=== PATIENT | female | born 1990 | race Caucasian/White ===

== ENCOUNTER → 2017-11-15 10:32 | Outpatient (CLI) | payer OTHER, SELFPAY | PROVIDERS: Visit Provider Specialist | DX: Z53.8 Procedure and treatment not carried out for other reasons (principal) ==

== ENCOUNTER → 2017-11-15 10:39 | Outpatient (CLI) | payer OTHER, SELFPAY ==
--- NOTE | 2017-11-15 10:41 | DI.US.S_ITS ---
PROCEDURE: US OB <= 14 WEEKS FETUS INDICATIONS: VIABILITY AND DATING OUTSIDE/PRIOR DATING DATA: Last menstrual period (LMP): 09/23/17. LMP-based estimated date of delivery (JERAMIE): 06/30/18. First dating scan (date and location): The study, 11/15/17. Estimated date of delivery (JERAMIE) from first dating scan: 06/29/18. TECHNIQUE: Real-time scanning was performed of the fetus and maternal pelvic organs, with image documentation. Endovaginal scanning was also performed to better visualize the fetus and maternal ovaries. COMPARISON: None. FINDINGS: Embryo: 160 beats per minute heart rate, crown-rump length of 1.4 cm correlates with a gestational age of 7 weeks 5 days, plus or -5 days. Measurement variability in dating: +/- 4 weeks by LMP, +/- 7 days by mean sac diameter (use before 6 weeks gestation if crown-rump length not able to be measured), +/- 5 days by crown-rump length (up to 8 weeks 6 days gestation), +/- 7 days by crown-rump length (up to 13 weeks 6 days gestation). Maternal organs: Ovaries normal considering gestational status. Limited images through the kidneys demonstrate no hydronephrosis. IMPRESSION: Early first trimester gestation with the estimated current gestational age of 7 weeks 5 days and delivery date projected to be centered on 06/29/18, with recommended followup to include anatomic survey at approximately 21 weeks gestation. Dictated by: Mil Aguillon M.D. on 11/15/2017 at 12:11 Approved by: Mil Aguillon M.D. on 11/15/2017 at 12:12
[2017-11-15 11:32] LABS: Add Manual Diff / Slide Review NO; Appearance Urine UA CLEAR; Basophils Percent Auto 0.8 % (0-2); Bilirubin Urine UA NEGATIVE (NEGATIVE); Color Urine UA YELLOW; Eosinophils Percent Auto 0.5 % (2-4); Glucose Urine UA NEGATIVE (Normal); Hematocrit 36.5 % (36-46); Hemoglobin 12.4 g/dL (12.0-16.0); Ketones Urine UA NEGATIVE (NEGATIVE); Leukocyte Esterase Urine UA NEGATIVE (NEGATIVE); Lymphocytes Percent Auto 16.1 % (25-40); Mean Corpuscular Hemoglobin 31.7 PG (26-34); Mean Corpuscular Volume 93.2 fL (80-100); Neutrophils Absolute Auto 6600 /uL (3000-5900); Neutrophils Percent Auto 76.6 % (50-75); Nitrite Urine UA Negative (Negative); Occult Blood Urine UA NEGATIVE (Negative); Platelet Count 223 X10^3/uL (150-400); Protein Urine UA NEGATIVE (Negative); Red Blood Cell Count 3.91 X10^6/uL (4.0-5.2); Red Cell Distribution Width 12.3 % (11.6-14.8); Specific Gravity Urine UA <=1.005 (1.000-1.035); Urobilinogen Urine UA 0.2 E.U./dL (0.2); White Blood Cell Count 8.6 X10^3/uL (4.5-11.0); pH Urine UA 6.5 (4.5-8.0)
[2017-11-15 12:51] LABS: Hepatitis B Surface Antigen NEGATIVE s/c (NEGATIVE); Rubella Antibody IgG 37.5 IU/mL (>15)
[2017-11-15 13:32] LABS: HIV 1 and 2 Antibody NEGATIVE (NEGATIVE); Hep C Virus Ab w/Reflex Quant NEGATIVE s/c (NEGATIVE)
[2017-11-16 15:06] LABS: HSV 2 IGG AB < 0.90 index (< 0.90); HSV1IGG 2.67 index (< 0.90)
[2017-11-18 13:15] LABS: Rapid Plasma Reagin NON-REACTIVE
== END ==
PROVIDERS: Visit Provider Specialist
DX: Z34.91 Encounter for supervision of normal pregnancy, unspecified, first trimester (principal); Z3A.01 Less than 8 weeks gestation of pregnancy
CPT/HCPCS: 36415; 76801; 80055; 81003; 86695; 86696; 86703; 86787; 86803; 86850; 86900; 86901; 87086

== ENCOUNTER → 2018-01-19 14:36 | Outpatient (CLI) | payer OTHER, SELFPAY ==
[2018-01-25 18:00] LABS: Calc Gestational Age 16.7; Cigarette Smoker NOT GIVEN; Donated Egg NOT GIVEN; Donor Egg Age NOT GIVEN; Estriol, Free 1.12 ng/mL; Inhibin A, Dimeric 63 pg/mL; Maternal Weight 171 lbs; Number of Fetuses 1; Previous Pregnancy Down Syndro NOT GIVEN; hCG, MoM 0.72
== END ==
PROVIDERS: Visit Provider Specialist
DX: Z34.82 Encounter for supervision of other normal pregnancy, second trimester (principal); Z3A.16 16 weeks gestation of pregnancy
CPT/HCPCS: 36415; 82105; 82677; 84702; 86336

== ENCOUNTER 2018-07-01 01:48 | Outpatient (CLI) | payer OTHER, SELFPAY | END 2018-07-01 02:55 | disposition home or self-care (01) | LOC: OB 07-05 13:06 | DX: O47.1 False labor at or after 37 completed weeks of gestation (principal); Z3A.40 40 weeks gestation of pregnancy | CPT/HCPCS: 59025; G0378; G0379 ==